=== PATIENT | female | born 1995 | race Caucasian/White ===

== ENCOUNTER 2017-05-07 07:40 | Inpatient (IN) | payer BC ==
[~2017-05-07] VITALS: Ht 167.6 cm; Wt 144.5 kg
[2017-05-07] VITALS (19 sets, daily range): BP systolic 101–139; BP diastolic 58–88
[~2017-05-07 07:40] MED LIST: MOTRIN800 MG PO
[2017-05-07] MEDS ORDERED: SYNTHROID200 MCG PO (08:25)
[2017-05-07] MEDS ORDERED: EXPECTA PRENAT1 EACH PO (08:25)
[2017-05-07] MEDS ORDERED: ZANTAC150 MG PO (08:26)
[2017-05-07 09:16] LABS: BASOPHIL (%) 0.4 % (0-1); BASOPHIL COUNT 0.1 K/uL (0-0.1); EOSINOPHIL (%) 0.4 % (0-5); EOSINOPHIL COUNT 0.1 K/uL (0-0.3); HEMATOCRIT 36.7 % (36.0-46.0); HEMOGLOBIN 12.3 G/DL (11.9-15.5); IMMATURE GRANULOCYTE (%) 0.7 % (0.0-0.7); LYMPHOCYTE (%) 22.4 % (15-42); LYMPHOCYTE COUNT 2.8 K/uL (1.0-2.8); MCH 28.5 PG (29.0-34.0); MCHC 33.5 G/DL (30.0-36.0); NEUTROPHIL (%) 68.1 % (45-76); NEUTROPHIL COUNT 8.5 K/uL (1.8-6.4); PLATELET COUNT 285 K/uL (156-360); RBC DIS.WIDTH-CV 13.3 % (11.8-14.6); RBC DIS.WIDTH-SD 41.1 % (39-53); RED BLOOD COUNT 4.32 M/uL (3.80-5.20); WHITE BLOOD COUNT 12.5 K/uL (4.1-10.2)
[2017-05-08] VITALS (8 sets, daily range): BP systolic 100–119; BP diastolic 51–71
[2017-05-08] MEDS ORDERED: MOTRIN800 MG PO (00:22)
[2017-05-08] MEDS ORDERED: PERCOCET 5/31 TABLET PO (00:22)
[2017-05-09 06:41] LABS: BASOPHIL (%) 0.2 % (0-1); EOSINOPHIL (%) 0.7 % (0-5); EOSINOPHIL COUNT 0.1 K/uL (0-0.3); HEMATOCRIT 27.1 % (36.0-46.0); IMMATURE GRANULOCYTE (%) 0.6 % (0.0-0.7); LYMPHOCYTE COUNT 2.4 K/uL (1.0-2.8); MCH 28.8 PG (29.0-34.0); MCHC 33.2 G/DL (30.0-36.0); MCV 86.6 FL (83-99); MONOCYTE (%) 8.2 % (3-12); MONOCYTE COUNT 1.2 K/uL (0-0.8); NEUTROPHIL (%) 74.3 % (45-76); PLATELET COUNT 206 K/uL (156-360); WHITE BLOOD COUNT 14.8 K/uL (4.1-10.2)
[2017-05-09 06:45] LABS: RED BLOOD COUNT 3.13 M/uL (3.80-5.20)
[2017-05-09 07:16] VITALS: BP 110/64
[2017-05-09 11:19] VITALS: BP 109/68
[2017-05-09 14:28] VITALS: BP 129/82
[2017-05-10 07:25] VITALS: BP 121/75
== END 2017-05-10 13:25 | disposition home or self-care (01) | DRG 765 ==
LOC: LDRP-OP 07:40 → 2WEST 07:41 → LDRP-OP 08:12 → 2WEST 23:37 → LDRP-OP 06-10 12:18
PROVIDERS: Obstetrics & Gynecology
DX: O62.0 Primary inadequate contractions (principal); O76 Abnormality in fetal heart rate and rhythm complicating labor and delivery; O99.284 Endocrine, nutritional and metabolic diseases complicating childbirth; E06.3 Autoimmune thyroiditis; E03.9 Hypothyroidism, unspecified; O99.214 Obesity complicating childbirth; E66.01 Morbid (severe) obesity due to excess calories; Z68.43 Body mass index [BMI] 50.0-59.9, adult; Z3A.39 39 weeks gestation of pregnancy; Z37.0 Single live birth
CPT/HCPCS: 85025; C1755; J0690; J1100; J1170; J1650; J2274; J2405; J2795; J3010; J7120